=== PATIENT | female | born 2000 | race Caucasian/White ===

== ENCOUNTER 2023-07-14 00:17 | Emergency (ER) | payer MEDICAID, SELFPAY ==
[2023-07-14 00:20] VITALS: BP 117/76; PULSE 87; RESP 16; TEMP 36.3; O2SAT 100; BMI 30.3
--- NOTE | 2023-07-14 00:35 | ECG_ITS ---
Test Reason : NAUSEA Blood Pressure : / mmHG Vent. Rate : 087 BPM Atrial Rate : 087 BPM P-R Int : 130 ms QRS Dur : 074 ms QT Int : 354 ms P-R-T Axes : 050 023 037 degrees QTc Int : 425 ms Normal sinus rhythm with sinus arrhythmia Normal ECG No previous ECGs available Referred By: Janette David Electronically Signed By:DANK ARCINIEGA MD
--- NOTE | 2023-07-14 00:55 | ED_ITS ---
HPI - Nausea/Vomiting/Diarrhea General Chief complaint: Nausea/Vomiting/Diarrhea Stated complaint: not feeling well, vomiting Time Seen by Provider: 07/14/23 00:39 Source: patient Mode of arrival: ambulatory Limitations: no limitations History of Present Illness HPI Narrative: patient comes to the emergency room complaining of nausea vomiting and abdominal discomfort. Patient states that last night she drank a large amount of alcohol, stopped drinking around 5 in the morning, almost 24 hours ago. Patient has been vomiting since then. patient states it is not significant abdominal pain that she is feeling, but does have discomfort Related Data Allergies Allergy/AdvReac Type Severity Reaction Status Date / Time No Known Allergies Allergy Unverified 04/08/20 17:01 [No Known Allergies*] [facility] Social History Social History Alcohol intake: current Alcohol intake frequency: a few times a month Smoked in Last 30 Days: No Use of substances other than those prescribed or required for medical reasons: No Advance Directives: No Advance Directives Information Provided: No Patient : No Physical Exam 2 Vital Signs: Vital Signs: Last Vital Signs Temp 97.3 F 07/14/23 00:20 Pulse 87 07/14/23 00:20 Resp 16 07/14/23 00:20 BP 117/76 07/14/23 00:20 Pulse Ox 100 07/14/23 00:20 O2 Del Method Room Air 07/14/23 00:20 BMI result Body Mass Index 30.3 Const: Other: Appearance: Alert. Oriented X3. No acute distress. well-appearing Eyes: Pupils equal, round and reactive to light. ENT: Pharynx normal. Neck: Normal inspection. Neck supple. No lymph nodes noted. No crepitus CVS: Normal heart rate and rhythm. Pulses normal. Normal S1 and S2 Respiratory: No respiratory distress. Breath sounds normal. No Wheezing. No rales Abdomen: Soft and nontender. No rigidity. No distention. Skin: Skin warm and dry. Normal skin color. Normal skin turgor. Extremities: No lower extremity edema. No Lacerations. No Rash Neuro: Oriented X 3. No motor deficit. No sensory deficit. Moving all extremities. No slurred speech. CN 2 through 12 grossly intact Psych: calm, cooperative, normal affect Course Course Course Narrative: - all of patient's labs pending - patient receiving IV fluids, Zofran Medications Administered Generic Name Dose Route Start Last Admin Trade Name Freq PRN Reason Stop Dose Admin Sodium Chloride 1,000 mls @ 999 mls/hr 07/14/23 00:55 07/14/23 01:09 Ns IVCONT 07/14/23 01:55 999 mls/hr .Q1H1M ONE Administration Discontinued Medications Generic Name Dose Route Start Last Admin Trade Name Elizabeth PRN Reason Stop Dose Admin Ondansetron HCl 4 mg 07/14/23 00:55 07/14/23 01:09 Ondansetron Hcl 4 Mg/2 Ml Vial IVPUSH 07/14/23 00:56 4 mg ONCE ONE Administration Medical Decision Making Medical Decision Making [facility] Narrative: - my interpretation of labs: White blood cell count 15.6, likely reactive leukocytosis. No chemistry abnormalities - patient is well-appearing, physical exam was completely normal, no abdominal pain. - patient likely dehydrated from vomiting and ETOH intake - Patient giving IV fluids, Zofran. Patient likely having alcohol gastritis Differential Diagnosis Differential Diagnoses: The differential diagnosis associated with the presentation includes ( , gastroenteritis, alcohol gastritis) Lab Data [facility] Lab Attestation statement: I reviewed the patient's lab results. 07/14/23 00:47 07/14/23 00:47 Labs: Lab Results 07/14/23 07/14/23 Range/Units 00:47 01:10 WBC 15.6 H (4.8-10.8) X10*3/uL RBC 4.81 (4.20-5.50) X10*6/uL Hgb 15.0 (12.0-16.0) g/dl Hct 44.8 (37.0-47.0) % MCV 93.1 (80.0-98.0) fL MCH 31.2 (27.0-33.0) pg MCHC 33.5 (31.0-35.0) g/dl RDW 12.2 (11.0-16.0) % Plt Count 444 H (160-400) X10*3/uL MPV 9.2 L (9.4-12.3) fL Immature Gran % (Auto) 0.3 (0.0-0.4) % Neut % (Auto) 87.5 H (45-73) % Lymph % (Auto) 6.7 L (20-40) % [place] % (Auto) 4.9 (2-11) % Eos % (Auto) 0.2 (0-4) % Baso % (Auto) 0.4 (0-2) % Lymph # (Auto) 1.1 L (1.2-4.9) X10*3/uL [place] # (Auto) 0.8 (0.1-1.2) X10*3/uL Eos # (Auto) 0.0 (0.0-0.4) X10*3/uL Baso # (Auto) 0.1 (0.0-0.2) X10*3/uL Abs Immat Gran (auto) 0.05 H (0.00-0.03) X10*3/uL Absolute Neuts (auto) 13.6 H (2.0-8.3) x10*3/uL Absolute Nucleated RBC 0.000 (0.0-0.012) X10*3/uL Nucleated RBC % (auto) 0.0 (0.0-0.2) /100WBC Sodium 140 (135-145) mmol/L Potassium 4.2 (3.3-5.1) mmol/L Chloride 101 (96-108) mmol/L Carbon Dioxide 25 (22-29) mmol/L Anion Gap 18 (12-20) BUN 14 (9-16) mg/dL Creatinine 0.78 (0.5-1.4) mg/dL Estim Creat Clear Calc 95.6 Estimated GFR > 60 Random Glucose 104 (60-115) mg/dL Calcium 10.5 H (8.4-10.2) mg/dL Magnesium 1.8 (1.6-2.6) mg/dL Total Bilirubin 0.6 (0.0-1.0) mg/dL Direct Bilirubin 0.2 (0.0-0.5) mg/dL AST 22 (5-31) U/L ALT 24 (0-31) U/L Alkaline Phosphatase 71 (39-117) U/L Troponin I High Sens < 2.7 (<3.5-17.0) ng/L Total Protein 9.0 H (6.5-8.0) g/dL Albumin 5.2 H (3.5-5.0) g/dL Lipase 22 (8-78) U/L Beta HCG, Quant < 2 mIU/mL Urine Color Yellow Urine Appearance Clear Urine pH 6.5 (5.0-9.0) Ur Specific [place] >= 1.030 H (1.005-1.025) Urine Protein 30 (1+) H (Neg-Trace) mg/dL Urine Glucose (UA) Negative (Negative) mg/dL Urine Ketones Negative (Negative) mg/dL Urine Blood Negative (Negative) Urine Nitrite Negative (Negative) Ur Leukocyte Esterase Negative (Negative) Urine RBC 3-5 H (0-2) /HPF Urine WBC 11-20 H (0-5) /HPF Ur Squamous Epith Cells 6-10 (0-2) /HPF Urine Bacteria 1+ (None Seen) Hyaline Casts 0-2 (0-2) /LPF Urine Opiates Screen Not Detected (Not Detect) Urine Fentanyl Screen Not Detected (Not Detect) Ur Barbiturates Screen Not Detected (Not Detect) Ur Phencyclidine Scrn Not Detected (Not Detect) Ur Amphetamines Screen Not Detected (Not Detect) U Benzodiazepines Scrn Not Detected (Not Detect) Urine Cocaine Screen Not Detected (Not Detect) U Marijuana (THC) Screen Not Detected (Not Detect) Ethyl Alcohol < 10 mg/dL Critical Care Time Critical Care Time Critical Care Time: Yes Total Critical Care Time: 30 Attestation: Please follow-up with your primary care physician tomorrow. If you have any worsening or new symptoms, please return to the emergency room or call 911 Discharge Plan Discharge Clinical Impression: Dehydration, Nausea & vomiting Patient Disposition: Home, Self-Care Additional Instructions: Please follow-up with your primary care physician tomorrow. If you have any worsening or new symptoms, please return to the emergency room or call 911
[2023-07-14 00:57] LABS: MANUAL DIFF FLAG NO
[2023-07-14 00:58] LABS: Basophils Absolute Auto 0.1 X10*3/uL (0.0-0.2); Basophils Percent Auto 0.4 % (0-2); Eosinophils Percent Auto 0.2 % (0-4); Hematocrit 44.8 % (37.0-47.0); Imm Gran Abs Auto 0.05 X10*3/uL (0.00-0.03); Imm Gran Pct Auto 0.3 % (0.0-0.4); Lymphocytes Absolute Auto 1.1 X10*3/uL (1.2-4.9); Lymphocytes Percent Auto 6.7 % (20-40); Mean Corpuscular HGB Conc 33.5 g/dl (31.0-35.0); Mean Corpuscular Hemoglobin 31.2 pg (27.0-33.0); Mean Corpuscular Volume 93.1 fL (80.0-98.0); Mean Platelet Volume 9.2 fL (9.4-12.3); Monocytes Absolute Auto 0.8 X10*3/uL (0.1-1.2); Monocytes Percent Auto 4.9 % (2-11); Neutrophils Absolute Auto 13.6 x10*3/uL (2.0-8.3); Neutrophils Percent Auto 87.5 % (45-73); Platelet Count 444 X10*3/uL (160-400); Red Blood Count 4.81 X10*6/uL (4.20-5.50); Red Cell Distribution Width 12.2 % (11.0-16.0); White Blood Count 15.6 X10*3/uL (4.8-10.8)
[2023-07-14] MEDS: ondansetron HCL 4 MG/2 ML VIAL IVPUSH (01:09)
[2023-07-14] MEDS: 0.9 % Sodium Chloride 1,000 ML 999 ML IVCONT (01:09)
[2023-07-14 01:17] LABS: Alanine Aminotransferase 24 U/L (0-31); Albumin Level 5.2 g/dL (3.5-5.0); Alkaline Phosphatase 71 U/L (39-117); Anion Gap 18 (12-20); Aspartate Amino Transferase 22 U/L (5-31); Bilirubin Direct 0.2 mg/dL (0.0-0.5); Bilirubin Total 0.6 mg/dL (0.0-1.0); Blood Urea Nitrogen 14 mg/dL (9-16); Calcium 10.5 mg/dL (8.4-10.2); Carbon Dioxide 25 mmol/L (22-29); Chloride 101 mmol/L (96-108); Creatinine Clr Calc Pharmacy 95.6; Estimated Glomerular Filt Rate > 60; Ethanol < 10 mg/dL; Glucose Random 104 mg/dL (60-115); HCG Quantitative < 2 mIU/mL; Lipase 22 U/L (8-78); Magnesium 1.8 mg/dL (1.6-2.6); Potassium 4.2 mmol/L (3.3-5.1); Sodium 140 mmol/L (135-145); Troponin-I High Sensitivity < 2.7 ng/L (<3.5-17.0)
--- NOTE | 2023-07-14 01:17 | PC.NURSE ---
pt a&ox3, respirations even and unlabored. pt reports drinking heavily last and reports waking up nauseous and throwing up. pt reports being unable to keep down food and drink for one day. pt denies diarrhea. IV established, labs obtained, urine obtained.
[2023-07-14 01:23] LABS: Appearance Urine Clear; Color Urine Yellow; Glucose Urine UA Negative (Negative); Leukocyte Esterase Urine Negative (Negative); Nitrite Urine Negative (Negative); PH 6.5 (5.0-9.0); Specific Gravity - Urine >= 1.030 (1.005-1.025); UMIC TRIGGER UACC YES; Urine Blood Negative (Negative); Urine Ketones Negative (Negative); Urine Protein 30 (1+) mg/dL (Neg-Trace)
[2023-07-14 01:25] LABS: Amphetamine Screen Urine Not Detected (Not Detect); Barbiturates, Urine Not Detected (Not Detect); Benzodiazepines Screen Urine Not Detected (Not Detect); Cannabinoid Screen Urine Not Detected (Not Detect); Cocaine Screen Urine Not Detected (Not Detect); Fentanyl, urine Not Detected (Not Detect); Opiate Screen Urine Not Detected (Not Detect); Phencyclidine Screen Urine Not Detected (Not Detect)
[2023-07-14 01:37] LABS: Bacteria Urine 1+ (None Seen); Hyaline Casts Urine 0-2 /LPF (0-2); UACC Culture Trigger YES
[2023-07-14 01:59] VITALS: BP 123/74; PULSE 68; RESP 15; TEMP 36.8; O2SAT 98
== END 2023-07-14 02:01 | disposition home or self-care (01) ==
PROVIDERS: Emergency Provider Emergency Medicine
DX: E86.0 Dehydration (principal); R11.2 Nausea with vomiting, unspecified
CPT/HCPCS: 36415; 80048; 80076; 80307; 81001; 83690; 83735; 84484; 84702; 85025; 87086; 93005; 96361; 96374; 99284; 99285; J2405

== ENCOUNTER → 2023-07-14 00:35 | Outpatient (BNV) | payer MEDICAID, SELFPAY | PROVIDERS: Emergency Provider Emergency Medicine; Visit Provider Internal Medicine Cardiovascular Disease | DX: R11.0 Nausea (principal) | CPT/HCPCS: 93010 ==

== ENCOUNTER 2025-03-19 14:00 | Outpatient (REF) | payer MEDICAID, SELFPAY ==
--- OUTSIDE RECORDS SUMMARY | 2025-03-19 13:00 | XMS_ITS | Encounter Summary ---
Author Organization [employer] Address [address] [place] [address] Care Team Providers Care Hospice Clinical Supervisor Name Role Phone Yosi Mandelupe PACKAGE DELIVERY DRIVER Primary Care Provider [phone] Encounter Details Date Type Department Care Team ([facility] st Contact Info) Description 03/19/2025 1:00 PM EDT Office Visit [facility] [address] [place], [place] [id number] Katherine Mandel FNP [address] [place] [address] Well adult exam (Primary Dx); Vaginal discharge; Urinary frequency; Dietary counseling; Exercise counseling; Large breasts Social History Tobacco Use Types Packs/Day Years Used Date Smoking Tobacco: Never Passive Smoke Exposure: Never Smokeless Tobacco: Never Tobacco Cessation:Counseling Given: Not Answered Alcohol Use Standard Drinks/Week Comments Never 0 (1 standard drink = 0.6 oz pur e alcohol) Depression Answer Date Recorded Patient Health Questionnaire-9 Score 0 03/19/2025 Patient Health Questionnaire-9 Score 0 03/19/2025 Last PHQ-9: Questionnaire Data Not on file 0 03/19/2025 Housing Stability Answer Date Recorded What is your housing situation today? I have mago irene 03/06/[address] you li ve. Do you have problems with any of the following? None of the above 03/06/2025 Food Insecurity Answer Date Recorded Within the past 12 months, y ou worried that your food would run out before you got money to buy more: Never True 03/06/2025 Within the past 12 months,th e food you bought just didn't last and you didn't have enough money to get more: Never True Transportation Answer Date Recorded In the past 12 months, has l ack of transportation kept you from medical appts, meetings, work or from getting things needed for daily living? No 03/06/2025 Utilities Answer Date Recorded In the past 12 months, has t he electric, gas, oil or water company threatened to shut off services in your home? No 03/06/2025 Depression Answer Date Recorded Patient Health Questionnaire-2 Score 0 03/19/2025 Internet Access Answer Date Recorded Internet Access Q1 Yes 03/06/2025 Internet Access Q2 Not on file 03/06/2025 Comments Unknown Sex and Gender Information Value Date Recorded Sex Assigned at Female 05/22/2022 10:20 AM EDT Legal Sex Female 10:20 AM EDT Gender Identity Female 03/19/2025 12:53 PM EDT Sexual Orientation Straight 03/19/2025 12 :53 PM EDT documented as of this encounter Last Filed Vital Signs Vital Sign Reading Time Taken Comments Blood Pressure 108/68 03/19/2025 1:09 PM EDT Pulse 66 03/19/2025 1:09 PM EDT Temperature 36.3 C (97.3 F) 03/19/2025 1:09 PM EDT Respiratory Rate 18 03/19/2025 1:09 PM EDT Oxygen Saturation 96% 03/19/2025 1:09 PM EDT Inhaled Oxygen Concentration - - Weight 68.6 kg (151 lb 4 oz) 03/19/2025 1:09 PM EDT Height 150.6 cm (4' 11.3 ) 03/19/2025 1:09 PM ED T Body Mass Index 30.24 03/19/2025 1:09 PM EDT documented in this encounter Functional Status * Over the past 2 weeks, how often have you been bothered by any of the following problems? Question Answer Date of Assessment Author Patient Health Questionnaire -2 Score 0 03/19/2025 1:11 PM EDT Jaci Sanz MA * Little interest or pleasure in doing things Answer Date of Assessment Author Not at all 03/19/2025 1:11 PM EDT Jaci Murray MA * Feeling down, depressed, or hopeless Answer Date of Assessment Author Not at all 03/19/2025 1:11 PM EDT Jaci Murray MA * Trouble falling or staying asleep, or sleeping too much Answer Date of Assessment Author Not at all 03/19/2025 1:11 PM EDT Jaci Murray MA * Feeling tired or having little energy Answer Date of Assessment Author Not at all 03/19/2025 1:11 PM EDT Jaci Murray MA * Poor appetite or overeating Answer Date of Assessment Author Not at all 03/19/2025 1:11 PM EDT Jaci Murray MA * Feeling bad about yourself - or that you are a failure or have let yourself or your family down Answer Date of Assessment Author Not at all 03/19/2025 1:11 PM EDT Jaci Murray MA * Trouble concentrating on things, such as reading the newspaper or watching television Answer Date of Assessment Author Not at all 03/19/2025 1:11 PM EDT Jaci Murray MA * Moving or speaking so slowly that other people could have noticed? Or the opposite - being so fidgety or restless that you have been moving around a lot more than usual. Answer Date of Assessment Author Not at all 03/19/2025 1:11 PM EDT Jaci Murray MA * Thoughts that you would be better off or hurting yourself in some way Answer Date of Assessment Author Not at all 03/19/2025 1:11 PM EDT Jaci Murray MA * Patient Health Questionnaire-9 Score Answer Date of Assessment Author 0 03/19/2025 1:11 PM EDT Jaci Murray MA * Over the last 2 weeks, how often have you been bothered by any of the following problems? Question Answer Date of Assessment Author Feeling nervous, anxious, or on edge 0 03/19/2025 1:11 PM EDT Jaci Sanz MA Not being able to stop or control worrying 0 03/19/2025 1:11 PM EDT Jaci Sanz MA Worrying too much about different things 0 03/19/2025 1:11 PM EDT Jaci Sanz MA Trouble relaxing 0 03/19/2025 1:11 PM EDT Jaci Mcginnis MA Being so restless that it is hard to sit still 0 03/19/2025 1:11 PM EDT Jaci Sanz MA Becoming easily annoyed or irritable 0 03/19/2025 1:11 PM EDT Jaci Sanz MA Feeling afraid as if somethi ng awful might happen 0 03/19/2025 1:11 PM EDT Jaci Sanz MA CONSUELO-7 Total Score 0 03/19/2025 1:11 PM EDT Jaci Sanz MA documented as of this encounter Plan of Treatment Scheduled Orders Name Type Priority Associated Diagnoses Orde r Schedule Chlamydia/N. Gonorrhoeae RNA, TMA, Vaginal Microbiology Routine Well adult exam Ordered: 03/19/2025 Hepatitis B Surface Antibody, Qualitative Lab Routine Well adult exam Expected: 03/19/2025 (Approximate), Expires: 03/19/2026 Hepatitis B surface antigen, EIA Lab Routine Well adult exam Expected: 03/19/2025 (Approximate), Expires: 03/19/2026 Hepatitis C Antibody with Reflex to HCV, RNA, Quantitative, Real-Time PCR Lab Routine Well adult exam Expected: 03/19/2025, Expires: 03/19/2026 HIV-1/2 Antigen and Antibodies, Fourth Generation, with Reflexes Lab Routine Well adult exam Expected: 03/19/2025 (Approximate), Expires: 03/19/2026 Hepatitis B Core Antibody, Total Lab Routine Well adult exam Expected: 03/19/2025 (Approximate), Expires: 03/19/2026 CBC auto differential Lab Routine Well adult exam Expected: 03/19/2025 (Approximate), Expires: 03/19/2026 Lipid Panel, Standard Lab Routine Well adult exam Expected: 03/19/2025 (Approximate), Expires: 03/19/2026 Hemoglobin A1c Lab Routine Well adult exam Expected: 03/19/2025 (Approximate), Expires: 03/19/2026 Vitamin D, 25-Hydroxy, Total, Immunoassay Lab Routine Well adult exam Expected: 03/19/2025 (Approximate), Expires: 03/19/2026 TSH Lab Routine Well adult exam Expected: 03/19/2025 (Approximate), Expires: 03/19/2026 Bacterial Vaginosis Panel Microbiology Routine Vaginal discharge Ordered: 03/19/2025 Urinalysis, Complete, with Reflex to Culture Lab Routine Urinary frequency Expected: 03/19/2025 (Approximate), Expires: 03/19/2026 documented as of this encounter Visit Diagnoses Diagnosis Well adult exam- Primary Routine general medical examination at a health care facility Vaginal discharge Leukorrhea, not specified as infective Urinary frequency Dietary counseling Dietary surveillance and counseling Exercise counseling Large breasts Hypertrophy of breast documented in this encounter Additional Health Concerns Assessment Noted Time PHQ-9 Depression Total Score: 0 03/19/20 1:11 PM EDT documented as of this encounter Care Teams Hospice Clinical Supervisor Relationship Specialty Start Date End Date Katherine Mandel FNP [address] [place] [id number] PCP - General Family Medicine 03/19/25 documented as of this encounter
--- OUTSIDE RECORDS SUMMARY | 2025-03-19 14:50 | XMS_ITS | Encounter Summary ---
Author Organization [facility] Address [address] [place] [phone] Phone Care Team Providers Care Overlock Collar Setter Name Role Phone Pcp, Unknown Primary Care Provider Unavailabl e Encounter Details Date Type Department Care Team (Late st Contact Info) Description 07/26/2024 Procedure Pass [facility], Ct Scan - [facility] [address] [place] [address] Social History Tobacco Use Types Packs/Day Years Used Date Smoking Tobacco: Never Smokeless Tobacco: Never Alcohol Use Standard Drinks/Week Comments Not Currently 0 (1 standard drink = 0.6 oz pur e alcohol) Education Answer Date Recorded Are you interested in more education? Not on jignesh e 07/26/2024 Are you concerned about learning? Not on file 07/26/2024 No 07/26/2024 No 07/26/2024 Digital Access Answer Date Recorded No 07/26/2024 No 07/26/2024 Reliable internet access at home? Not on file 07/26/2024 Device with a working camera? Not on file Intimate Partner Violence Answer Date R ecorded Are you denied basic needs s uch as food, clothing, or medical care? No 07/26/2024 In the past 12 months have y ou been in a relationship with a person who hurts, threatens, or tries to control you? No 07/26/2024 Are you denied basic needs s uch as food, clothing, or medical care? No 07/26/2024 In the past 12 months have y ou been in a relationship with a person who hurts, threatens, or tries to control you? No 07/26/2024 Comments No Sex and Gender Information Value Date Recorded Sex Assigned at Female 07/26/2024 6:45 PM EST Legal Sex Female 6:41 PM EST Gender Identity Female 07/26/2024 6:45 PM EST Sexual Orientation Don't know 07/26/2024 10 :14 PM EST documented as of this encounter Functional Status * Calculated C-SSRS Risk Score (Lifetime/Recent) Answer Date of Assessment Author No Risk Indicated 07/26/2024 6:46 PM EST Glenys López, ALY * [place] Suicide Severity Rating Scale (Screener/Recent Self-Report) Question Answer Date of Assessment Author 1. Wish to be (Past 1 Month) No 07/26/2024 6:46 PM EST Glenys López RN 2. Non-Specific Active Suici ayleen Thoughts (Past 1 Month) No 07/26/2024 6:46 PM EST Glenys López RN 6. Suicidal Behavior (Lifetime) No 6:46 PM EST Glenys López, ALY documented as of this encounter Plan of Treatment Not on file documented as of this encounter Visit Diagnoses Not on filedocumented in this encounter Care Teams Overlock Collar Setter Relationship Specialty Start Date End Date Pcp, Unknown PCP - General 07/26/24 documented as of this encounter Additional Source Comments The information contained in this document represents components of the legal health record. It is not the complete legal health record.[facility]
--- OUTSIDE RECORDS SUMMARY | 2025-03-19 14:50 | XMS_ITS | Clinical Summary ---
Author Organization [facility] Address [address] [place] [phone] Phone Care Team Providers Care Call Out Operator Name Role Phone Pcp, Unknown Primary Care Provider Unavailabl e Allergies No known active allergies Medications ondansetron (ZOFRAN-ODT) 4 MG disintegrating tablet Take 1 tablet (4 mg total) by mouth every 8 (eight) hours as needed for nausea. 15 tablet Active Social History Tobacco Use Types Packs/Day Years Used Date Smoking Tobacco: Never Smokeless Tobacco: Never Tobacco Cessation:Counseling Given: Not Answered Alcohol Use Standard Drinks/Week Comments Not Currently [...] Don't know 07/26/2024 10 :14 PM EST Last Filed Vital Signs Vital Sign Reading Time Taken Comments Blood Pressure 126/77 07/27/2024 1:24 AM EST Pulse 60 07/27/2024 1:24 AM EST Temperature 36 C (96.8 F) 07/27/2024 1:24 AM EST Respiratory Rate 16 07/27/2024 1:24 AM EST Oxygen Saturation 100% 07/27/2024 1:24 AM EST Inhaled Oxygen Concentration - - Weight 67.4 kg (148 lb 8 oz) 07/26/2024 6:47 PM EST Height 149.9 cm (4' 11 ) 07/26/2024 6:47 PM EST Body Mass Index 29.99 07/26/2024 6:47 PM EST Plan of Treatment Health Maintenance Due Date Last Done Comments Adult Td,Tdap Booster 2002 DEPRESSION SCREENING 2014 HPV VACCINES (1 - 3-dose series) 2017 CHLAMYDIA SCREENING 2018 MENINGOCOCCAL VACCINES (B) ( 1 of 2 - Standard) 2018 HEPATITIS C SCREENING 02/15/2020 HIV ONE-TIME SCREENING (18-6 5 YEARS) 02/15/2020 PAP SMEAR 2023 COVID-19 VACCINE (1 - 2023-2 5 season) 2024 INFLUENZA VACCINE (#1) 2025 SMOKING Hx and SMOKELESS TOB ACCO SCREENING 07/26/2025 07/26/2024 HEPATITIS A VACCINES Aged Out No long er eligible based on patient's age to complete this topic HIB VACCINES Aged Out No longer eligi ble based on patient's age to complete this topic MENINGOCOCCAL VACCINES (ACWY) Aged Out No longer eligible based on patient's age to complete this topic PNEUMOCOCCAL VACCINES (0-49 years) Aged Out No longer eligible based on patient's age to complete this topic Medical Devices Not on file [place] [address] [address] [place] [address] [place] [address] [employer] Care Teams Call Out Operator Relationship Specialty Start Date End Date Pcp, Unknown PCP - General 07/26/24 Additional Source Comments The information contained in this document represents components of the legal health record. It is not the complete legal health record.[facility]
--- OUTSIDE RECORDS SUMMARY | 2025-03-19 14:51 | XMS_ITS | Encounter Summary ---
Author Organization [employer] Address [address] [place] [address] Care Team Providers Care Production Support Consultant Name Role Phone Katherine Mandel DEGREASING SOLUTION RECLAIMER Primary Care Provider [phone] Encounter Details Date Type Department Care Team (Latest Contact Info) Description 03/19/2025 Travel Social History Tobacco Use Types Packs/Day Years Used Date Smoking Tobacco: Never Passive Smoke Exposure: Never Smokeless Tobacco: Never Alcohol Use Standard Drinks/Week Comments Never 0 [...] PM EDT documented as of this encounter Functional Status * Over the [...] Diagnoses Not on filedocumented in this encounter Additional Health Concerns Assessment Noted Time PHQ-9 Depression Total Score: 0 03/19/20 25 1:11 PM EDT documented as of this encounter Care Teams Production Support Consultant Relationship Specialty Start Date End Date Katherine Mandel FNP [address] [place] [id number] PCP - General Family Medicine 03/19/25 documented as of this encounter
--- OUTSIDE RECORDS SUMMARY | 2025-03-19 14:51 | XMS_ITS | Clinical Summary ---
Author Organization [employer] Address [address] [facility] 7t [place] [address] Care Team Providers Care Welder Repair Name Role Phone Katherine Mandel WATER TREATMENT SPECIALIST Primary Care Provider [phone] Allergies No known active allergies Active Problems Problem Noted Date Diagnosed Date Well adult exam 03/19/2025 Urinary frequency 03/19/2025 Large breasts 03/19/2025 Encounters Date Type Department Care Team Description 03/19/2025 1:00 PM EDT Office Visit [facility] [address] [place] [phone] Katherine Mandel, LIVIA Well adult exam (Primary Dx); Vaginal discharge; Urinary frequency; Dietary counseling; Exercise counseling; Large breasts 03/19/2025 Travel 03/12/[address] [address] [place] chart prep 03/06/2025 Patient Outreach [facility] [address] [place], [place] [phone] Radha Reyes NP Pre-visit Planning (SDOH negative, Tobacco screening negative) from Last 3 Months Family History Medical History Relation Name Comments No Known Problems Brother No Known Problems Daughter No Known Problems Father No Known Problems Maternal Grandfather No Known Problems Maternal Grandmother No Known Problems Mother No Known Problems Mother's Brother No Known Problems Mother's Sister No Known Problems Son Relation Name Status Comments Brother Daughter Father Maternal Grandfather Maternal Grandmother Mother Mother's Brother Mother's Sister Son Social History Tobacco Use Types Packs/Day Years [...] Orientation Straight 03/19/2025 12 :53 PM EDT Last Filed Vital Signs Vital Sign Reading [...] Mass Index 30.24 03/19/2025 1:09 PM EDT Plan of Treatment Health Maintenance Due Date Last Done Comments Chlamydia and Gonorrhea Screening 2002 HIV Screening 2002 Family Planning (PISQ) 2017 HPV Vaccines (1 - 3-dose series) 2017 Meningococcal B Vaccine (1 of 2 - Standard) 2018 Hepatitis C Screening 02/15/2020 Pap Smear 2023 COVID-19 Vaccine ( - season) 2024 Influenza Vaccine (#1) 2025 Alcohol/Substance Use Screening 03/19/2026 03/19/2025 Depression Screening 03/19/2026 03/19/2025, 03/19/20 25 Disability Screening 03/19/2026 03/19/2025 SDOH Screening 03/19/2026 03/19/2025 Tobacco Screening 03/19/2026 03/19/2025 DTaP/Tdap/Td Vaccines (8 - Td or Tdap) 01/29/2034 01/30/2024, 07/22/2020, 11/07/2007, Additional history exists Zoster Vaccines (1 of 2) 02/15/2052 RSV Patients and Patients Aged 60 years or older (1 - 1-dose 75+ series) 2077 Hepatitis B Vaccines Completed 02/10/2003, 2002, 2002 HIB Vaccines Completed 05/01/2003, 08/24, 2002, Additional history exists Pneumococcal Vaccine: Pediatrics (0 to 5 Years) and At-Risk Patients (6 to 49) Years Aged Out 05/01/2003, 2002, 2002, Additional history exists No longer eligible based on patient's age to complete this topic IPV Vaccines Completed 11/07/2007, 08/24, 2002, Additional history exists Hepatitis A Vaccines Aged Out No long er eligible based on patient's age to complete this topic Meningococcal Vaccine Aged Out No tika sylvester eligible based on patient's age to complete this topic RSV under 20 months Aged Out No longe r eligible based on patient's age to complete this topic Rotavirus Vaccines Aged Out No longer eligible based on patient's age to complete this topic Insurance [facility] C3 Care Teams Welder Repair Relationship Specialty Start Date End Date Katherine Mandel FNP [address] [place] [phone] PCP - General Family Medicine 03/19/25
[2025-03-19 16:10] LABS: MANUAL DIFF FLAG NO
[2025-03-19 16:21] LABS: Hematocrit 36.5 % (37.0-47.0); Hemoglobin 11.5 g/dl (12.0-16.0); Imm Gran Abs Auto 0.02 X10*3/uL (0.00-0.03); Imm Gran Pct Auto 0.3 % (0.0-0.4); Lymphocytes Absolute Auto 2.3 X10*3/uL (1.2-4.9); Mean Corpuscular HGB Conc 31.5 g/dl (31.0-35.0); Mean Corpuscular Hemoglobin 28.8 pg (27.0-33.0); Mean Corpuscular Volume 91.5 fL (80.0-98.0); NRBC Abs Auto 0.000 X10*3/uL (0.0-0.012); NRBC Pct Auto 0.0 /100WBC (0.0-0.2); Platelet Count 379 X10*3/uL (160-400); Red Blood Count 3.99 X10*6/uL (4.20-5.50); White Blood Count 7.7 X10*3/uL (4.8-10.8)
[2025-03-19 16:32] LABS: Hemoglobin A1C 110.3377 umol/L; Total Hemoglobin (HGBA1C) 3073.8215 umol/L
[2025-03-19 16:37] LABS: Appearance Urine Clear; Glucose Urine UA Negative (Negative); PH 5.5 (5.0-9.0); Specific Gravity - Urine 1.020 (1.005-1.025); UMIC TRIGGER UACC YES
[2025-03-19 16:43] LABS: UACC Culture Trigger YES
[2025-03-19 16:43] LABS: Cholesterol 211 mg/dL (<200); HDL Cholesterol 78 mg/dL (>40); Triglycerides 248 mg/dL (<150)
[2025-03-19 16:58] LABS: Thyroid Stimulating Hormone 1.94 uIU/mL (0.32-4.0)
[2025-03-20 04:04] LABS: HBS Num1 0.65 mIU/mL (0-7.99); HBc Num1 0.10 S/CO (0.00-0.79); HBsAGNum1 0.48 S/CO (0.00-0.99); HIV Num 1 0.05 S/CO (0.00-0.99); Hepatitis B Surface Antigen Negative (Negative); ~HepC Num1 0.20 S/CO (0.00-0.79); ~Hepatitis B Surface Antibody NONREACTIVE (Nonreactive); ~Hepatitis C Antibody Nonreactive (Nonreactive)
[2025-03-20 04:54] LABS: CT PCR NOT DETECTED (Not Detect.); NG PCR NOT DETECTED (Not Detect.)
[2025-03-20 07:22] LABS: Bacterial Vaginosis PCR NEGATIVE (Negative); Candida Group PCR NOT DETECTED (Not Detect); Candida glab krusei PCR NOT DETECTED (Not Detect); Trichomonas vaginalis PCR NOT DETECTED (Not Detect)
== END 2025-03-19 14:01 | disposition home or self-care (01) ==
LOC: HO.HHCL 14:00
PROVIDERS: PCP Nurse Practitioner Family; Visit Provider Nurse Practitioner Family
DX: Z00.00 Encounter for general adult medical examination without abnormal findings (principal); R35.0 Frequency of micturition; N89.8 Other specified noninflammatory disorders of vagina; Z11.59 Encounter for screening for other viral diseases; Z11.3 Encounter for screening for infections with a predominantly sexual mode of transmission; Z11.8 Encounter for screening for other infectious and parasitic diseases
CPT/HCPCS: 36415; 80061; 81001; 81515; 82306; 83036; 84443; 85025; 86704; 86706; 86803; 87086; 87147; 87340; 87389; 87491; 87591

== ENCOUNTER 2025-06-25 11:48 | Outpatient (REF) | payer MEDICAID, SELFPAY ==
[2025-07-01 03:28] LABS: C. trachomatis RNA TMA NOT DETECTED (NOT DETECTED); N. gonorrhoeae RNA TMA NOT DETECTED (NOT DETECTED); Trichomonas (NAAT) NOT DETECTED (NOT DETECTED)
== END 2025-06-25 11:49 | disposition home or self-care (01) ==
LOC: HO.LNP 11:48
PROVIDERS: Visit Provider Advanced Practice Midwife
DX: Z12.4 Encounter for screening for malignant neoplasm of cervix (principal); Z20.2 Contact with and (suspected) exposure to infections with a predominantly sexual mode of transmission
CPT/HCPCS: 87491; 87591; 87661; 88175

== ENCOUNTER 2025-07-20 13:34 | Outpatient (REF) | payer MEDICAID, SELFPAY ==
--- NOTE | ~2025-07-20 | US_ITS ---
EXAMINATION: US PELVIS CLINICAL INFORMATION: Abnormal uterine bleeding COMPARISON: None available. TECHNIQUE: Ultrasound of the pelvis is performed using both transabdominal and transvaginal transducers along with Doppler. Transvaginal imaging is performed due to inadequate visualization transabdominally. FINDINGS: Uterus: The uterus is anteverted and measures 6.5 x 2.9 x 4.5 cm. The endometrium does not appear thickened. The double wall endometrial thickness is 3 mm. No endometrial fluid or mass. The uterus is smooth in contour and has normal myometrial echogenicity. No visible fibroid. Adnexa: Both ovaries are visualized. There is normal color flow to the adnexa. There is no ovarian torsion. There is no pelvic ascites or fluid collection. Right ovary measures 3.2 x 1.7 x 2.3 cm. Normal. Left ovary measures 2.8 x 1.8 x 2.3 cm. Normal. US/US pelvic and transvaginal IMPRESSION: Normal pelvic ultrasound. Electronically signed by: Lizeth Chinchilla MD 07/20/2025 02:04 PM [facility] [place]
--- OUTSIDE RECORDS SUMMARY | 2025-07-20 15:43 | XMS_ITS | Encounter Summary ---
Author Organization [employer] Address [address] [facility] 7t [place] [address] Care Team Providers Care Planimeter Operator Name Role Phone Katherine Mandel BUSINESS OBJECTS REPORT DEVELOPER Primary Care Provider [phone] Encounter Details Date Type Department Care Team ([facility] st Contact Info) Description 07/08/2025 Results Follow-Up [facility] [address] [place] [address] Danay Palafox CNM [address] [place] [address] STI testing add on (NG, CT, Trich) Social History Tobacco Use Types Packs/Day Years [...] Access Q2 Not on file 03/06/2025 Comments No Sex and Gender Information Value Date Recorded Sex Assigned at Female 05/22/2022 10:20 AM EDT Legal Sex Female 10:20 AM EDT Gender Identity Female 03/19/2025 12:53 PM EDT Sexual Orientation Straight 03/19/2025 12 :53 PM EDT documented as of this encounter Plan of Treatment Not on file documented as of this encounter Visit Diagnoses Not on filedocumented in this encounter Additional Health Concerns Assessment Noted Time PHQ-9 Depression Total Score: 0 03/19/20 1:11 PM EDT documented as of this encounter Care Teams Planimeter Operator Relationship Specialty Start Date End Date Katherine Mandel FNP [address] [place] [phone] PCP - General Family Medicine 03/19/25 documented as of this encounter
--- OUTSIDE RECORDS SUMMARY | 2025-07-20 15:43 | XMS_ITS | Clinical Summary ---
Author Organization [employer] Address [address] [facility] 7t [place] [address] Care Team Providers Care Business Systems Administrator Name Role Phone Katherine Mandel Primary Care Provider [phone] Allergies No known active allergies Medications No known medications Active Problems Problem Noted Date Diagnosed Date Dietary counseling 03/20/2025 Vaginal discharge 03/20/2025 Well adult exam 03/20/2025 Exercise counseling 03/19/2025 Urinary frequency 03/19/2025 Macromastia 03/19/2025 Encounters Date Type Department Care Team Description 07/08/2025 Results Follow-Up [address] [address] Cordell Bishop CNM STI testing add on (NG, CT, Trich) 06/25/2025 2:45 PM EST Procedure Visit [address] [address] Cordell Bishop CNM Abnormal uterine bleeding (AUB) (Primary Dx); Routine cervical smear; Screening examination for venereal disease; Macromastia; Other chronic back pain 06/25/2025 Travel 06/24/[address] [address] Cordell Bishop CNM chart prep 06/22/[address] [phone] Katherine Mandel FNP Nurse Triage 05/26/2025 Telephone [facility] [address] [place] [phone] Katherine Mandel FNP R/S PAP APPT 05/25/[address] [address] Katherine Mandel FNP Nurse Triage 05/25/2025 Telephone [facility] [address] [place] [address] Katherine Mandel FNP Appointment Request; no show (PT no show for sick on site ) from Last 3 Months Immunizations Immunization Administration Dates Next Due DTaP, 5 pertussis antigens 11/07/2007,,2002,2002,0 2002 Hep B, Adolescent or Pediatric 02/10/2003,2001,2002 Hib (PRP-T) 05/01/2003,2002,2002 ,2002 IPV 11/07/2007,2002,2002 ,2002 MMR 11/07/2007,05/01/2003 Pneumococcal Conjugate PCV 7 05/01/2003,09/19/19 03,2002,2002 Tdap 01/30/2024,07/22/2020 Varicella 11/07/2007,05/01/2003 Family History Medical History Relation Name Comments [...] Q2 Not on file 03/06/2025 Comments No Intention Date Recorded No desire to become (finding) 1 08/26/2024 Sex and Gender Information Value Date Recorded Sex Assigned at Female 05/22/2022 10:20 AM EDT Legal Sex Female 10:20 AM EDT Gender Identity Female 03/19/2025 12:53 PM EDT Sexual Orientation Straight 03/19/2025 12 :53 PM EDT Last Filed Vital Signs Vital Sign Reading Time Taken Comments Blood Pressure 122/80 06/25/2025 4:06 PM EST Pulse 73 06/25/2025 4:06 PM EST Temperature 36.4 C (97.5 F) 06/25/2025 4:06 PM EST Respiratory Rate 16 06/25/2025 4:06 PM EST Oxygen Saturation 98% 06/25/2025 4:06 PM EST Inhaled Oxygen Concentration - - Weight 71.9 kg (158 lb 9.6 oz) 06/25/2025 4:06 P M EST Height 150.6 cm (4' 11.3 ) 03/19/2025 1:09 PM ED T Body Mass Index 31.71 03/19/2025 1:09 PM EDT Plan of Treatment Health Maintenance Due Date Last Done Comments COVID-19 Vaccine ( season) 2025 Influenza Vaccine (#1) 2025 Alcohol/Substance Use Screening 03/19/2026 03/19/2025 Depression Screening 03/19/2026 03/19/2025, 03/19/20 25 Disability Screening 03/19/2026 03/19/2025 SDOH Screening 03/19/2026 03/19/2025 Tobacco Screening 03/19/2026 03/19/2025 HPV Vaccines (1 - 3-dose series) 03/20/2026 Postponed from 2017 (Patient Refused) Meningococcal B Vaccine (1 of 2 - Standard) 03/20/2026 Postponed from 2018 (Patient Refused) Chlamydia and Gonorrhea Screening 06/25/2026 06/25/2025, 03/19/2025, 12/05/2024, Additional history exists Family Planning (PISQ) 06/25/2026 06/25/2025 Pap Smear 06/25/2028 06/25/2025 DTaP/Tdap/Td Vaccines (8 - Td or Tdap) [...] Completed 11/07/2007, 08/24, 2002, Additional history exists HIV Screening Completed 03/19/2025 Hepatitis C Screening Completed 03/19/2025 Hepatitis A Vaccines Aged Out No long [...] on patient's age to complete this topic Procedures Procedure Name Priority Date/Time Associated Diagnosis Comments US PELVIS TRANSVAGINAL Urgent 07/20/2025 1:46 PM EST Abnormal uterine bleeding (AUB) POCT , URINE Routine 06/25/2025 3:22 PM EST Abnormal uterine bleeding (AUB) CHLAMYDIA/N. GONORRHOEAE AND T. VAGINALIS RNA, QUAL,TMA Routine 06/25/2025 12:00 AM EST Screening examination for venereal disease PAP SMEAR Routine 06/25/2025 12:00 AM EST Routine cervical smear HEPATITIS C AB W/REFL TO HCV RNA, QN, PCR Routine 03/19/2025 2:10 PM EDT [facility] adult exam HIV 1/2 ANTIGEN/ANTIBODY, FOURTH GENERATION W/RFL Routine 03/19/2025 2:10 PM EDT Well adult exam from Last 3 Months or Most Recently Relevant to Health Maintenance Results * US Pelvis Transvaginal (07/20/2025 1:46 PM EST) Anatomical Region Laterality Modality Pelvis Ultrasound 07/20/2025 1:46 PM EST Narrative 07/20/2025 2:07 PM EST [facility] [address] [place] [address] [place] [address] Ultrasound Report Signed Patient: Criss Cheung MR#: [id number] : 2000 Acct:[id number] Age/Sex: 25 / F ADM Date: 07/20/25 Loc: HO.HMGCX Attending Dr: Cordell Bishop CNM Ordering Physician: CORDELL BISHOP CNM Date of Service: 07/20/25 Procedure(s): US pelvic and transvaginal Accession Number(s): [id number] cc: Katherine Mandel SENIOR CLINICAL RESEARCH SCIENTIST; CORDELL BISHOP CNM Reason for Exam: aub EXAMINATION: US PELVIS CLINICAL INFORMATION: Abnormal uterine bleeding COMPARISON: None available. TECHNIQUE: Ultrasound of the pelvis is performed using both transabdominal and transvaginal transducers along with Doppler. Transvaginal imaging is performed due to inadequate visualization transabdominally. FINDINGS: Uterus: The uterus is anteverted and measures 6.5 x 2.9 x 4.5 cm. The endometrium does not appear thickened. The double wall endometrial thickness is 3 mm. No endometrial fluid or mass. The uterus is smooth in contour and has normal myometrial echogenicity. No visible fibroid. Adnexa: Both ovaries are visualized. There is normal color flow to the adnexa. There is no ovarian torsion. There is no pelvic ascites or fluid collection. Right ovary measures 3.2 x 1.7 x 2.3 cm. Normal. Left ovary measures 2.8 x 1.8 x 2.3 cm. Normal. US/US pelvic and transvaginal IMPRESSION: Normal pelvic ultrasound. Electronically signed by: Lizeth Chinchilla MD 07/20/2025 02:04 PM [facility] Dictated By: Lizeth Chinchilla MD Signed By: <Electronically signed by Lizeth Chinchilla MD in OV> 07/20/25 1404 DD/ 1346 TD/TT: 07/20/25 1401 Client Strategist: KEELY Procedure Note Donotuseinterpreter, Image - 07/20/2025 [facility] [place] [address] Ultrasound Report Signed Patient: Criss CheungMR#: [id number] : 2000Acct:[id number] Age/Sex: 25 / FADM Date: 07/20/25 Loc: HO.HMGCX Attending Dr: Cordell Bishop CNM Ordering Physician: CORDELL BISHOP CNM Date of Service: 07/20/25 Procedure(s): US pelvic and transvaginal Accession Number(s): [id number] cc: Katherine Mandel SENIOR CLINICAL RESEARCH SCIENTIST; CORDELL BISHOP CNM Reason for Exam: aub EXAMINATION: US PELVIS CLINICAL INFORMATION: Abnormal uterine bleeding COMPARISON: None available. TECHNIQUE: Ultrasound of the pelvis is performed using both transabdominal and transvaginal transducers along with Doppler. Transvaginal imaging is performed due to inadequate visualization transabdominally. FINDINGS: Uterus: The uterus is anteverted and measures 6.5 x 2.9 x 4.5 cm. The endometrium does not appear thickened. The double wall endometrial thickness is 3 mm. No endometrial fluid or mass. The uterus is smooth in contour and has normal myometrial echogenicity. No visible fibroid. Adnexa: Both ovaries are visualized. There is normal color flow to the adnexa. There is no ovarian torsion. There is no pelvic ascites or fluid collection. Right ovary measures 3.2 x 1.7 x 2.3 cm. Normal. Left ovary measures 2.8 x 1.8 x 2.3 cm. Normal. US/US pelvic and transvaginal IMPRESSION: Normal pelvic ultrasound. Electronically signed by: Lizeth Chinchilla MD 07/20/2025 02:04 PM EST RP Dictated By: Lizeth Chinchilla MD Signed By: <Electronically signed by Lizeth Chinchilla MD in OV> 07/20/25 1404 DD/ 1346 TD/TT: 07/20/25 1401 Client Strategist: KEELY Cordell Bishop CNM IMG US PROCEDURES Final R esult * POCT , urine manually resulted (06/25/2025 3:22 PM EST) Preg Test, Ur Negative Negative, Indeterminate, None Detected, Trace, 3+, Specimen unsatisfactory for evaluation, Weakly Positive, 1+, 2+ QC Media Lot # [id number] Lot# Expiration Date [id number] Urine 06/25/2025 3:22 PM EST Cordell Bishop CNM POINT OF CARE TEST ENTER/ EDIT ORDERABLES Final Result * STI testing add on (NG, CT, Trich) (06/25/2025 12:00 AM EST) Pathologist [facility] Trichomonas (NAAT) NOT DETECTED NOT DETECTED [facility] Comment:The analytical perfo rmance characteristics of thisassay have been determined by [employer]. Themodifications have not been cleared or approved bythe FDA. This assay has been validated pursuant to theCLIA regulations and is used for clinical purposes.For additional information, please refer tohttp://education.Get.com/faq/Trichomonastma(This link is being provided for information/educational purposes only.)THIS TEST WAS PERFORMED AT:[facility] [place] [phone] LOPEZ MD CTNG Ref Lab NOT DETECTED NOT DETECTED [facility] NG Ref Lab NOT DETECTED NOT DETECTED [facility] ThinPrep vial Cervix uteri structure / Unknown 06/25/2025 06/29/2025 6:15 AM EST Cordell Bishop CNM LAB CYTOLOGY ORDERABLES F inal Result [facility] [address] [place] [phone] * Pap Smear (06/25/2025 12:00 AM EST) Swab Cervix uteri structure / Unknown 06/25/2025 06/29/2025 6:15 AM EST Narrative [facility] - 07/06/2025 5:35 PM EST ----- ------- Name: Criss Cheung Age/Sex: 25/F : 2000 Unit#: [id number] Attend Dr: CORDELL BISHOP CNM Re06/25/25 Status: DEP REF Location: [facility] Disch: ----- ------- SPEC : [id number] RECD: 06/29/25 STATUS: JONO WRIGHT NUM: [id number] HERNESTO: 06/25/250000 SUBM DR: CORDELL BISHOP Sarmad ENTERED: 06/29/25 SP TYPE: Pap Smr OT DR: ORDERED: Pap Smear, PAP path review Interpretation General Category: Negative for intraepithelial lesion/malignancy. Adequacy: Endocervical component present. Interpretation: Reactive cellular changes. Acute inflammation and blood present. Clinical Information LMP:Unknown date Previous PAP test:Unknown date/findings Material Received ThinPrep-Cervical PAP Disclaimer As of May 14, 2024, the technical services to include automated prescreening performed by the ThinPrep Imaging System, PAP screening and HPV testing will be performed at [facility] (CLIA #[id number]), [address] [place] [address]. Testing for HPV was performed using the [employer] 6800 system. The presence of HPV in the female genital tract is associated with a number of diseases, including cervical carcinoma. The HPV DNA high risk pool tests for HPV 31, 33, 35, 39, 45, 51, 52, 56, 58, 59, 66 and 68. The testing for HPV 16 and 18 genotypes has also been performed. A positive result indicates detection of nucleic acid sequences from one or more subtypes, whereas a negative result indicates such sequences were not detected. All professional services are performed by [facility] [place] ([address] [place] [address], [place] [address]; ; CLIA #[id number]). The PAP Test is a screening procedure with the inherent possibility of both false negative and false positive results. Results should be interpreted in the context of historic and current clinical findings. Reliability of the PAP Test is enhanced by performing the test on a regular repetitive basis. ----- ------- Signed (signature on file) Zelda Bernstein MD 07/06/25 1235 ----- ------- END OF REPORT Cordell Bishop [facility] CYTOLOGY ORDERABLES F inal Result Performing Organization Address [facility] de Phone Number [facility] [address] [place] [address] [phone] * Hepatitis C Antibody with Reflex to HCV, RNA, Quantitative, Real-Time PCR (03/19/2025 2:10 PM EDT) [facility] Hepatitis C Antibody Nonreactive Nonreactive [facility] Comment:Antibodies to HCV no t detected; does not exclude early acuteHCV infection. Blood Venous blood specimen / Unknown 03/19/2025 2:10 PM EDT 03/19/2025 4:11 PM EDT Katherine Mandel [facility] LAB BLOOD ORDERABLES Final Res ult Performing Organization Address [facility] de Phone Number [facility] [address] [place] [address] [phone] * HIV-1/2 Antigen and Antibodies, Fourth Generation, with Reflexes (03/19/2025 2:10 PM EDT) [facility] HIV AB/AG Nonreactive Nonreactive [facility] Comment:HIV-1 p24 Ag and/or HIV-1/HIV-2 Ab not detected.A test result that is nonreactive does not exclude thepossibility of exposure to or infection with HIV-1 and/orHIV-2. Nonreactive results in this assay for individualswith prior exposure to HIV-1 and/or HIV-2 may be due toantigen and antibody levels that are below the limit ofdetection of this assay.The [employer] HIV Ag/Ab Combo assay result andsupplemental assay results should be interpreted inconjunction with the patient's clinical presentation,history and other laboratory results. If the results areinconsistent with clinical evidence, additional testing issuggested to confirm the result. Blood Venous blood specimen / Unknown 03/19/2025 2:10 PM EDT 03/19/2025 4:11 PM EDT Katherine Mandel [facility] BLOOD ORDERABLES Final Res ult [facility] [address] [place] [phone] from Last 3 Months or Most Recently Relevant to Health Maintenance [place] [address] [place] [address] C3 Care Teams Business Systems Administrator Relationship Specialty Start Date End Date Katherine Mandel FNP [address] [place] [phone] PCP - General Family Medicine 03/19/25
--- OUTSIDE RECORDS SUMMARY | 2025-07-20 15:43 | XMS_ITS | Clinical Summary ---
Author Organization [facility] Address [address] [facility] [address] [place] [phone] Phone Care Team Providers Care Senior Project Controls Specialist Name Role Phone Pcp, Unknown Primary Care [...] (18-6 5 YEARS) 02/15/2020 PAP SMEAR 2023 INFLUENZA VACCINE (#1) 2025 COVID-19 VACCINE ( - 2024-2 6 season) 2025 SMOKING Hx and SMOKELESS TOB ACCO [...] topic Medical Devices Not on file Insurance [address] [address] [place] [address] C3 A[employer] Care Teams Senior Project Controls Specialist Relationship Specialty Start Date End Date Pcp, Unknown PCP - General 07/26/24 Additional Source Comments The information contained in this document represents components of the legal health record. It is not the complete legal health record.[facility]
--- OUTSIDE RECORDS SUMMARY | 2025-07-20 15:43 | XMS_ITS | Encounter Summary ---
Author Organization [facility] Address [address] [facility] [address] [place] [phone] Phone Care Team Providers Care Parking Lot Attendant And Cashier Name Role Phone Pcp, Unknown Primary Care Provider Unavailabl e Encounter Details Date Type Department Care Team (Late st Contact Info) Description 07/26/2024 Procedure Pass [facility], Ct Scan - [facility] [address] [place] [address] Social History Tobacco Use Types Packs/Day Years [...] PM EST documented as of this encounter Plan of Treatment Not on file documented as of this encounter Visit Diagnoses Not on filedocumented in this encounter Care Teams Parking Lot Attendant And Cashier Relationship Specialty Start Date End Date Pcp, Unknown PCP - General 07/26/24 documented as of this encounter Additional Source Comments The information contained in this document represents components of the legal health record. It is not the complete legal health record.[facility]
== END 2025-07-20 13:35 ==
LOC: HO.HMGCX 13:34
PROVIDERS: PCP Nurse Practitioner Family; Visit Provider Advanced Practice Midwife
DX: N93.9 Abnormal uterine and vaginal bleeding, unspecified (principal)
CPT/HCPCS: 76830; 76856

== ENCOUNTER → 2025-07-20 13:36 | Outpatient (BNV) | payer MEDICAID, SELFPAY | PROVIDERS: PCP Nurse Practitioner Family; Visit Provider Radiology Diagnostic Radiology | DX: N93.9 Abnormal uterine and vaginal bleeding, unspecified (principal) | CPT/HCPCS: 76830; 76856 ==